=== PATIENT | female | born 2000 | race Caucasian/White ===

== ENCOUNTER 2023-12-20 20:45 | Emergency (ER) | payer SELFPAY ==
[2023-12-20 21:15] LABS: APPEARANCE,URINE CLEAR; BILIRUBIN,URINE NEGATIVE (NEGATIVE); COLOR,URINE YELLOW; GLUCOSE,URINE NEGATIVE (NEGATIVE); KETONES,URINE NEGATIVE (NEGATIVE); LEUKOCYTE ESTERASE,URINE NEGATIVE (NEGATIVE); NITRITE,URINE NEGATIVE (NEGATIVE); OCCULT BLOOD,URINE SMALL (NEGATIVE); PROTEIN,URINE NEGATIVE (NEGATIVE); UROBILINOGEN,URINE 0.2 EU/dL (<2.0)
[2023-12-20 21:26] LABS: BASOPHILS ABSOLUTE AUTO 0.08 K/uL (0.00-0.20); BASOPHILS PERCENT AUTO 0.8 % (0.0-1.0); EOSINOPHILS ABSOLUTE AUTO 0.44 K/uL (0.00-0.45); EOSINOPHILS PERCENT AUTO 4.4 % (0.0-6.0); HEMATOCRIT 39.6 % (37.0-47.0); HEMOGLOBIN 13.4 g/dL (12.0-16.0); IMMATURE GRAN ABSOLUTE AUTO 0.02 K/uL (0.00-0.05); IMMATURE GRAN PERCENT AUTO 0.2 % (0.0-0.4); LYMPHOCYTES ABSOLUTE AUTO 3.29 K/uL (1.00-4.80); LYMPHOCYTES PERCENT AUTO 33.1 % (24.0-44.0); MEAN CORPUSCULAR HEMOGLOBIN 29.6 pg (28.0-32.0); MEAN CORPUSCULAR HGB CONC 33.8 g/dL (32.0-36.0); MEAN CORPUSCULAR VOLUME 87.4 fL (83.0-99.0); MEAN PLATELET VOLUME 10.3 fL (9.4-12.3); MONOCYTES ABSOLUTE AUTO 0.52 K/uL (0.00-0.80); MONOCYTES PERCENT AUTO 5.2 % (0.0-8.0); NEUTROPHILS ABSOLUTE AUTO 5.58 K/uL (1.80-7.70); NEUTROPHILS PERCENT AUTO 56.3 % (41.0-71.0); PLATELET COUNT,PLT 324 K/uL (150-400); RED BLOOD CELL COUNT 4.53 M/uL (4.10-5.30); WHITE BLOOD CELL COUNT,WBC 9.93 K/uL (3.9-11.3)
[2023-12-20 21:29] LABS: BACTERIA,URINE FEW (NEGATIVE); EPITHELIAL CELLS,URINE FEW (NONE-FEW); MUCUS,URINE LIGHT (NONE-MOD); RBC,URINE 0-3 (0-2/HPF); WBC,URINE 0-2 (0-5/HPF)
[2023-12-20 21:48] LABS: INR 0.98 (0.86-1.11)
[2023-12-20 21:52] LABS: ALBUMIN 3.9 g/dL (3.4-5.0); BILIRUBIN TOTAL 0.2 mg/dL (0.2-1.0); CALCIUM 9.2 mg/dL (8.5-10.1); CREATININE 0.7 mg/dL (0.6-1.0); EST CRCL DRUG DOSING (CG) 119.01 mL/min; POTASSIUM,K 3.4 mmol/L (3.5-5.1); PROTEIN TOTAL,TP 7.8 g/dL (6.4-8.2)
== END 2023-12-20 23:22 | disposition home or self-care (01) ==
LOC: MW.ED 20:45
DX: O20.9 Hemorrhage in early pregnancy, unspecified (principal); Z67.40 Type O blood, Rh positive; Z75.8 Other problems related to medical facilities and other health care; Z79.899 Other long term (current) drug therapy; Z3A.00 Weeks of gestation of pregnancy not specified
CPT/HCPCS: 36415; 76817; 76817-26; 80053; 81001; 83690; 84702; 85025; 85610; 86900; 86901; 99284

== ENCOUNTER 2024-04-15 14:23 | Emergency (ER) | payer SELFPAY ==
[2024-04-15 14:56] LABS: BASOPHILS ABSOLUTE AUTO 0.09 K/uL (0.00-0.20); BASOPHILS PERCENT AUTO 0.7 % (0.0-1.0); EOSINOPHILS ABSOLUTE AUTO 0.42 K/uL (0.00-0.45); EOSINOPHILS PERCENT AUTO 3.5 % (0.0-6.0); HEMATOCRIT 36.8 % (37.0-47.0); HEMOGLOBIN 12.9 g/dL (12.0-16.0); IMMATURE GRAN ABSOLUTE AUTO 0.02 K/uL (0.00-0.05); IMMATURE GRAN PERCENT AUTO 0.2 % (0.0-0.4); LYMPHOCYTES ABSOLUTE AUTO 3.24 K/uL (1.00-4.80); LYMPHOCYTES PERCENT AUTO 26.8 % (24.0-44.0); MEAN CORPUSCULAR HEMOGLOBIN 29.6 pg (28.0-32.0); MEAN CORPUSCULAR HGB CONC 35.1 g/dL (32.0-36.0); MEAN CORPUSCULAR VOLUME 84.4 fL (83.0-99.0); MEAN PLATELET VOLUME 10.2 fL (9.4-12.3); MONOCYTES ABSOLUTE AUTO 0.64 K/uL (0.00-0.80); MONOCYTES PERCENT AUTO 5.3 % (0.0-8.0); NEUTROPHILS ABSOLUTE AUTO 7.67 K/uL (1.80-7.70); NEUTROPHILS PERCENT AUTO 63.5 % (41.0-71.0); PLATELET COUNT,PLT 346 K/uL (150-400); RED BLOOD CELL COUNT 4.36 M/uL (4.10-5.30); WHITE BLOOD CELL COUNT,WBC 12.08 K/uL (3.9-11.3)
[2024-04-15 15:21] LABS: ALANINE AMINOTRANSFERASE,ALT 25 IU/L (14-63); ALBUMIN 3.6 g/dL (3.4-5.0); ALKALINE PHOSPHATASE 66 U/L (46-116); ASPARTATE AMNIOTRANSFERASE,AST 13 IU/L (15-37); BILIRUBIN TOTAL 0.2 mg/dL (0.2-1.0); BLOOD UREA NITROGEN,BUN 8 mg/dL (7.0-18.0); CALCIUM 9.2 mg/dL (8.5-10.1); CARBON DIOXIDE,CO2 28.7 mmol/L (21.0-32.0); CHLORIDE,CL 102 mmol/L (98-107); CREATININE 0.6 mg/dL (0.6-1.0); GLUCOSE RANDOM 109 mg/dL (74-106); POTASSIUM,K 3.8 mmol/L (3.5-5.1); PROTEIN TOTAL,TP 7.3 g/dL (6.4-8.2); SODIUM,NA 140 mmol/L (136-145)
[2024-04-15 15:27] LABS: ESTIMATED GFR 130 mL/min (>60)
[2024-04-15 16:34] LABS: APPEARANCE,URINE CLOUDY; BILIRUBIN,URINE NEGATIVE (NEGATIVE); COLOR,URINE YELLOW; GLUCOSE,URINE NEGATIVE (NEGATIVE); KETONES,URINE NEGATIVE (NEGATIVE); LEUKOCYTE ESTERASE,URINE NEGATIVE (NEGATIVE); NITRITE,URINE NEGATIVE (NEGATIVE); OCCULT BLOOD,URINE LARGE (NEGATIVE); PH,URINE 5.5 (5.0-8.0); PROTEIN,URINE NEGATIVE (NEGATIVE); UROBILINOGEN,URINE 0.2 EU/dL (<2.0)
[2024-04-15 16:42] LABS: EPITHELIAL CELLS,URINE MANY (NONE-FEW)
[2024-04-15 16:43] LABS: BACTERIA,URINE FEW (NEGATIVE); MUCUS,URINE LIGHT (NONE-MOD)
== END 2024-04-15 17:20 | disposition home or self-care (01) ==
LOC: MW.ED 14:23
DX: O20.9 Hemorrhage in early pregnancy, unspecified (principal); Z75.8 Other problems related to medical facilities and other health care; Z3A.01 Less than 8 weeks gestation of pregnancy
CPT/HCPCS: 36415; 76817; 76817-26; 80053; 81001; 84702; 85025; 86900; 86901; 99283; 99284

== ENCOUNTER 2024-10-13 19:29 | Observation (INO) | payer MEDICAID ==
[2024-10-13 19:49] LABS: BASOPHILS ABSOLUTE AUTO 0.08 K/uL (0.00-0.20); BASOPHILS PERCENT AUTO 0.8 % (0.0-1.0); EOSINOPHILS ABSOLUTE AUTO 0.43 K/uL (0.00-0.45); EOSINOPHILS PERCENT AUTO 4.5 % (0.0-6.0); HEMATOCRIT 38.5 % (37.0-47.0); HEMOGLOBIN 13.1 g/dL (12.0-16.0); IMMATURE GRAN ABSOLUTE AUTO 0.03 K/uL (0.00-0.05); IMMATURE GRAN PERCENT AUTO 0.3 % (0.0-0.4); LYMPHOCYTES ABSOLUTE AUTO 2.75 K/uL (1.00-4.80); LYMPHOCYTES PERCENT AUTO 28.9 % (24.0-44.0); MEAN CORPUSCULAR HEMOGLOBIN 29.2 pg (28.0-32.0); MEAN CORPUSCULAR VOLUME 85.7 fL (83.0-99.0); MEAN PLATELET VOLUME 10.2 fL (9.4-12.3); MONOCYTES ABSOLUTE AUTO 0.66 K/uL (0.00-0.80); MONOCYTES PERCENT AUTO 6.9 % (0.0-8.0); NEUTROPHILS ABSOLUTE AUTO 5.58 K/uL (1.80-7.70); NEUTROPHILS PERCENT AUTO 58.6 % (41.0-71.0); PLATELET COUNT,PLT 308 K/uL (150-400); RED BLOOD CELL COUNT 4.49 M/uL (4.10-5.30); WHITE BLOOD CELL COUNT,WBC 9.53 K/uL (3.9-11.3)
[2024-10-13 20:20] LABS: APPEARANCE,URINE CLEAR; BILIRUBIN,URINE NEGATIVE (NEGATIVE); COLOR,URINE YELLOW; GLUCOSE,URINE NEGATIVE (NEGATIVE); KETONES,URINE TRACE mg/dL (NEGATIVE); LEUKOCYTE ESTERASE,URINE NEGATIVE (NEGATIVE); NITRITE,URINE NEGATIVE (NEGATIVE); OCCULT BLOOD,URINE NEGATIVE (NEGATIVE); PH,URINE 6.5 (5.0-8.0); PROTEIN,URINE NEGATIVE (NEGATIVE); UROBILINOGEN,URINE 0.2 EU/dL (<2.0)
[2024-10-13 20:44] LABS: A/G RATIO 1.2 (0.9-1.6); ALBUMIN 3.9 g/dL (3.4-5.0); BILIRUBIN TOTAL 0.3 mg/dL (0.2-1.0); CALCIUM 8.8 mg/dL (8.5-10.1); CARBON DIOXIDE,CO2 27.2 mmol/L (21.0-32.0); CREATININE 0.7 mg/dL (0.6-1.0); EST CRCL DRUG DOSING (CG) 118.01 mL/min; POTASSIUM,K 3.7 mmol/L (3.5-5.1); PROTEIN TOTAL,TP 7.1 g/dL (6.4-8.2)
[2024-10-13] MEDS ORDERED: Acetaminophen 650 MG Supp RECTAL PRN (22:23)
[2024-10-13 22:39] LABS: BASOPHILS ABSOLUTE AUTO 0.09 K/uL (0.00-0.20); BASOPHILS PERCENT AUTO 0.8 % (0.0-1.0); EOSINOPHILS ABSOLUTE AUTO 0.48 K/uL (0.00-0.45); EOSINOPHILS PERCENT AUTO 4.1 % (0.0-6.0); HEMATOCRIT 38.2 % (37.0-47.0); IMMATURE GRAN ABSOLUTE AUTO 0.03 K/uL (0.00-0.05); IMMATURE GRAN PERCENT AUTO 0.3 % (0.0-0.4); LYMPHOCYTES ABSOLUTE AUTO 3.63 K/uL (1.00-4.80); LYMPHOCYTES PERCENT AUTO 31.3 % (24.0-44.0); MEAN CORPUSCULAR VOLUME 85.3 fL (83.0-99.0); MEAN PLATELET VOLUME 10.3 fL (9.4-12.3); MONOCYTES ABSOLUTE AUTO 0.77 K/uL (0.00-0.80); MONOCYTES PERCENT AUTO 6.6 % (0.0-8.0); NEUTROPHILS ABSOLUTE AUTO 6.61 K/uL (1.80-7.70); NEUTROPHILS PERCENT AUTO 56.9 % (41.0-71.0); PLATELET COUNT,PLT 314 K/uL (150-400); RED BLOOD CELL COUNT 4.48 M/uL (4.10-5.30); WHITE BLOOD CELL COUNT,WBC 11.61 K/uL (3.9-11.3)
[2024-10-13] MEDS: Sodium Chloride 0.9% 1,000 ML IV STA (22:46)
[2024-10-14] MEDS: Methotrexate PF 50 MG/2 ML SDV IM STA (00:08)
[2024-10-14] MEDS: Morphine 4 MG/ML Syringe IVPUSH PRN (08:03)
[2024-10-14] MEDS: Ondansetron 4 MG/2 ML SDV IVPUSH PRN (17:24)
[2024-10-14] MEDS: Acetaminophen 500 MG Tab PO PRN (21:11)
[2024-10-15 11:02] LABS: BASOPHILS ABSOLUTE AUTO 0.06 K/uL (0.00-0.20); BASOPHILS PERCENT AUTO 0.8 % (0.0-1.0); EOSINOPHILS ABSOLUTE AUTO 0.26 K/uL (0.00-0.45); EOSINOPHILS PERCENT AUTO 3.7 % (0.0-6.0); HEMATOCRIT 34.4 % (37.0-47.0); IMMATURE GRAN ABSOLUTE AUTO 0.02 K/uL (0.00-0.05); IMMATURE GRAN PERCENT AUTO 0.3 % (0.0-0.4); LYMPHOCYTES ABSOLUTE AUTO 2.09 K/uL (1.00-4.80); LYMPHOCYTES PERCENT AUTO 29.4 % (24.0-44.0); MEAN CORPUSCULAR HEMOGLOBIN 29.6 pg (28.0-32.0); MEAN CORPUSCULAR HGB CONC 34.9 g/dL (32.0-36.0); MEAN CORPUSCULAR VOLUME 84.7 fL (83.0-99.0); MEAN PLATELET VOLUME 10.1 fL (9.4-12.3); MONOCYTES ABSOLUTE AUTO 0.44 K/uL (0.00-0.80); MONOCYTES PERCENT AUTO 6.2 % (0.0-8.0); NEUTROPHILS ABSOLUTE AUTO 4.24 K/uL (1.80-7.70); NEUTROPHILS PERCENT AUTO 59.6 % (41.0-71.0); PLATELET COUNT,PLT 293 K/uL (150-400); RED BLOOD CELL COUNT 4.06 M/uL (4.10-5.30); WHITE BLOOD CELL COUNT,WBC 7.11 K/uL (3.9-11.3)
== END 2024-10-15 12:05 | disposition home or self-care (01) ==
LOC: MW.ED 19:29 → MW.MS 22:26
PROVIDERS: ADMIT Obstetrics & Gynecology; ATTEND Obstetrics & Gynecology
DX: O00.90 Unspecified ectopic pregnancy without intrauterine pregnancy (principal)
CPT/HCPCS: 36415; 76801; 80053; 81003; 84702; 85025; 86900; 86901; A9270; J2270; J2405; J7030; 99222; 99239; 99284

== ENCOUNTER 2024-10-22 10:00 | Observation (INO) | payer MEDICAID ==
[2024-10-22] MEDS: Sodium Chloride 0.9% 1,000 ML IV ONE (11:01)
[2024-10-22] MEDS: Morphine 4 MG/ML Syringe IVPUSH ONE (11:02)
[2024-10-22] MEDS: Ondansetron 4 MG/2 ML SDV IVPUSH ONE (11:02)
[2024-10-22 11:10] LABS: BASOPHILS ABSOLUTE AUTO 0.05 K/uL (0.00-0.20); BASOPHILS PERCENT AUTO 0.5 % (0.0-1.0); EOSINOPHILS ABSOLUTE AUTO 0.35 K/uL (0.00-0.45); EOSINOPHILS PERCENT AUTO 3.6 % (0.0-6.0); HEMATOCRIT 39.2 % (37.0-47.0); HEMOGLOBIN 13.5 g/dL (12.0-16.0); IMMATURE GRAN ABSOLUTE AUTO 0.03 K/uL (0.00-0.05); IMMATURE GRAN PERCENT AUTO 0.3 % (0.0-0.4); LYMPHOCYTES ABSOLUTE AUTO 2.06 K/uL (1.00-4.80); LYMPHOCYTES PERCENT AUTO 21.4 % (24.0-44.0); MEAN CORPUSCULAR HEMOGLOBIN 29.3 pg (28.0-32.0); MEAN CORPUSCULAR HGB CONC 34.4 g/dL (32.0-36.0); MEAN CORPUSCULAR VOLUME 85.2 fL (83.0-99.0); MEAN PLATELET VOLUME 9.4 fL (9.4-12.3); MONOCYTES ABSOLUTE AUTO 0.43 K/uL (0.00-0.80); MONOCYTES PERCENT AUTO 4.5 % (0.0-8.0); NEUTROPHILS ABSOLUTE AUTO 6.69 K/uL (1.80-7.70); NEUTROPHILS PERCENT AUTO 69.7 % (41.0-71.0); PLATELET COUNT,PLT 388 K/uL (150-400); WHITE BLOOD CELL COUNT,WBC 9.61 K/uL (3.9-11.3)
[2024-10-22 11:12] LABS: BILIRUBIN,URINE NEGATIVE (NEGATIVE); COLOR,URINE YELLOW; GLUCOSE,URINE NEGATIVE (NEGATIVE); KETONES,URINE NEGATIVE (NEGATIVE); LEUKOCYTE ESTERASE,URINE TRACE (NEGATIVE); NITRITE,URINE NEGATIVE (NEGATIVE); OCCULT BLOOD,URINE LARGE (NEGATIVE); PROTEIN,URINE 30 mg/dL (NEGATIVE); UROBILINOGEN,URINE 0.2 EU/dL (<2.0)
[2024-10-22 11:13] LABS: APPEARANCE,URINE HAZY
[2024-10-22 11:19] LABS: BACTERIA,URINE 1+ (NEGATIVE); MUCUS,URINE LIGHT (NONE-MOD); SQUAMOUS EPITHELIAL CELLS,UR MODERATE
[2024-10-22 12:05] LABS: A/G RATIO 0.9 (0.9-1.6); ALBUMIN 4.2 g/dL (3.4-5.0); BILIRUBIN TOTAL 0.5 mg/dL (0.2-1.0); CALCIUM 9.3 mg/dL (8.5-10.1); CARBON DIOXIDE,CO2 26.7 mmol/L (21.0-32.0); CREATININE 0.7 mg/dL (0.6-1.0); EST CRCL DRUG DOSING (CG) 118.01 mL/min; POTASSIUM,K 3.9 mmol/L (3.5-5.1); PROTEIN TOTAL,TP 8.7 g/dL (6.4-8.2)
[2024-10-22] MEDS: Morphine 2 MG/ML SYRINGE IVPUSH ONE (13:55)
[2024-10-22] MEDS ORDERED: Bupivacaine 0.25% 30 ML SDV ONE (15:39)
[2024-10-22] MEDS ORDERED: Bupivacaine 0.5%/EPINEPHrine 1:200,000 30 ML SDV ONE (15:39)
[2024-10-22] MEDS ORDERED: Ropivacaine 0.5% 5 MG/ML 30 ML SDV ONE (15:42)
[2024-10-22] MEDS ORDERED: fentaNYL 100 MCG/2 ML SDV ONE (15:44)
[2024-10-22] MEDS ORDERED: dexmedeTOMIDine HCl 200 MCG/2 ML SDV ONE (15:44)
[2024-10-22] MEDS ORDERED: Midazolam 1 MG/ML 2 ML SDV ONE (15:44)
[2024-10-22] MEDS ORDERED: Propofol 200 MG/20 ML SDV ONE (15:44)
[2024-10-22] MEDS ORDERED: Lidocaine 2% 5 ML SDV ONE (15:44)
[2024-10-22] MEDS ORDERED: Sodium Chloride 0.9% 20 ML ONE (15:45)
[2024-10-22] MEDS ORDERED: Rocuronium Bromide 50 MG/5 ML Syringe ONE ×2 (15:48→17:20)
[2024-10-22] MEDS ORDERED: Ondansetron 4 MG/2 ML SDV ONE (17:00)
[2024-10-22] MEDS ORDERED: Dexamethasone 4 MG/ML 5 ML MDV ONE (17:00)
[2024-10-22] MEDS ORDERED: Ketorolac 30 MG/ML SDV ONE (17:07)
[2024-10-22] MEDS ORDERED: Sugammadex Sodium 200 MG/2 ML VIAL IV ONE (17:12)
[2024-10-22] MEDS ORDERED: HYDROmorphone 1 MG/ML Syringe ONE (17:45)
[2024-10-22] MEDS ORDERED: Acetaminophen 500 MG Tab ONE (21:00)
[2024-10-23 06:21] LABS: BASOPHILS ABSOLUTE AUTO 0.03 K/uL (0.00-0.20); BASOPHILS PERCENT AUTO 0.2 % (0.0-1.0); HEMATOCRIT 32.3 % (37.0-47.0); HEMOGLOBIN 11.1 g/dL (12.0-16.0); IMMATURE GRAN ABSOLUTE AUTO 0.02 K/uL (0.00-0.05); IMMATURE GRAN PERCENT AUTO 0.2 % (0.0-0.4); LYMPHOCYTES ABSOLUTE AUTO 1.87 K/uL (1.00-4.80); LYMPHOCYTES PERCENT AUTO 15.4 % (24.0-44.0); MEAN CORPUSCULAR HEMOGLOBIN 29.3 pg (28.0-32.0); MEAN CORPUSCULAR HGB CONC 34.4 g/dL (32.0-36.0); MEAN CORPUSCULAR VOLUME 85.2 fL (83.0-99.0); MEAN PLATELET VOLUME 9.6 fL (9.4-12.3); MONOCYTES ABSOLUTE AUTO 0.49 K/uL (0.00-0.80); NEUTROPHILS ABSOLUTE AUTO 9.74 K/uL (1.80-7.70); NEUTROPHILS PERCENT AUTO 80.2 % (41.0-71.0); PLATELET COUNT,PLT 385 K/uL (150-400); RED BLOOD CELL COUNT 3.79 M/uL (4.10-5.30); WHITE BLOOD CELL COUNT,WBC 12.15 K/uL (3.9-11.3)
[2024-10-23 07:06] LABS: A/G RATIO 0.9 (0.9-1.6); ALANINE AMINOTRANSFERASE,ALT 32 IU/L (14-63); ALBUMIN 3.4 g/dL (3.4-5.0); ALKALINE PHOSPHATASE 67 U/L (46-116); ASPARTATE AMNIOTRANSFERASE,AST 20 IU/L (15-37); BILIRUBIN TOTAL 0.3 mg/dL (0.2-1.0); BLOOD UREA NITROGEN,BUN 7 mg/dL (7.0-18.0); CALCIUM 9.2 mg/dL (8.5-10.1); CARBON DIOXIDE,CO2 25.8 mmol/L (21.0-32.0); CHLORIDE,CL 105 mmol/L (98-107); CREATININE 0.7 mg/dL (0.6-1.0); GLUCOSE RANDOM 114 mg/dL (74-106); POTASSIUM,K 4.2 mmol/L (3.5-5.1); SODIUM,NA 138 mmol/L (136-145)
[2024-10-23 07:20] LABS: ESTIMATED GFR 125 mL/min (>60)
== END 2024-10-23 10:35 | disposition home or self-care (01) ==
LOC: MW.ED 10:00 → MW.SDS 15:13 → MW.OB 19:01
PROVIDERS: ADMIT Obstetrics & Gynecology; ATTEND Obstetrics & Gynecology
DX: O00.102 Left tubal pregnancy without intrauterine pregnancy (principal); O99.210 Obesity complicating pregnancy, unspecified trimester; E66.812 Obesity, class 2
CPT/HCPCS: 36415; 59151; 64488; 76817; 80053; 81001; 84702; 84703; 85025; 87086; 96361; 96374; 96375; 96376; 99285; A9270; J0665; J1100; J1171; J1885; J2003; J2250; J2270; J2405; J2704; J2795; J3010; J7030; 00840; 87147; 99284; J3490